=== PATIENT | male | born 1960 | race Caucasian/White ===

== ENCOUNTER → 2017-10-20 | Outpatient (CLI) | payer OTHER ==
[2017-10-20 18:33] LABS: ALBUMIN 3.9 GM/DL (3.2-5.2); ALBUMIN/GLOBULIN RATIO 1.18 (1.00-1.93); ALKALINE PHOSPHATASE 95 U/L (45-117); ALT/SGPT 27 U/L (12-78); ANION GAP 6 MEQ/L (8-16); AST/SGOT 16 U/L (7-37); BILIRUBIN,TOTAL 0.8 MG/DL (0.2-1.0); BLOOD UREA NITROGEN 11 MG/DL (7-18); CALCIUM LEVEL 8.9 MG/DL (8.5-10.1); CARBON DIOXIDE LEVEL 30 MEQ/L (21-32); CHLORIDE LEVEL 103 MEQ/L (98-107); CHOLESTEROL LEVEL 165 MG/DL (<200); CREATININE FOR GFR 0.86 MG/DL (0.70-1.30); GLOMERULAR FILTRATION RATE > 60.0 (>56); GLUCOSE, FASTING 97 MG/DL (70-100); HDL CHOLESTEROL 73 MG/DL (>40); LDL CHOLESTEROL 76.4 MG/DL (<100); NON-HDL-C 92 MG/DL; POTASSIUM SERUM 4.2 MEQ/L (3.5-5.1); SODIUM LEVEL 139 MEQ/L (136-145); TOTAL PROTEIN 7.2 GM/DL (6.4-8.2); TRIGLYCERIDES LEVEL 78 MG/DL (<150)
== END ==
LOC: M SMT 10:52
DX: Z00.00 Encounter for general adult medical examination without abnormal findings (principal)
CPT/HCPCS: 80053

== ENCOUNTER → 2018-11-02 | Outpatient (CLI) | payer OTHER ==
[2018-11-02 14:09] LABS: BASO % 0.2 % (0.0-1.0); EOS # 0.1 10^3/uL (0.0-0.50); EOS % 2.2 % (0.0-3.0); HEMATOCRIT 46.5 % (42.0-52.0); HEMOGLOBIN 15.8 g/dl (13.5-17.5); LYMPH % 32.6 % (24.0-44.0); MEAN CORPUSCULAR HEMOGLOBIN 28.6 pg (27.0-33.0); MEAN CORPUSCULAR VOLUME 84.2 fl (80.0-96.0); MONO # 0.5 10^3/uL (0.0-0.8); MONO % 8.2 % (0.0-5.0); NEUTROPHILS # 3.4 10^3/uL (1.8-7.7); NEUTROPHILS % 56.6 % (36.0-66.0); PLATELET COUNT, AUTOMATED 216 10^3/uL (150-450); RED BLOOD COUNT 5.52 10^6/uL (4.30-6.10)
[2018-11-02 14:25] LABS: ALT/SGPT 24 U/L (12-78); BILIRUBIN,TOTAL 0.7 MG/DL (0.2-1.0); BLOOD UREA NITROGEN 14 MG/DL (7-18); CALCIUM LEVEL 8.9 MG/DL (8.5-10.1); CARBON DIOXIDE LEVEL 29 MEQ/L (21-32); CHLORIDE LEVEL 104 MEQ/L (98-107); CREATININE FOR GFR 0.86 MG/DL (0.70-1.30); GLOMERULAR FILTRATION RATE > 60.0 (>56); GLUCOSE, FASTING 88 MG/DL (70-100); SODIUM LEVEL 139 MEQ/L (136-145); TOTAL PROTEIN 6.9 GM/DL (6.4-8.2)
== END ==
LOC: M SMT 10:51
PROVIDERS: ATTEND Physician Assistant Medical
DX: R42 Dizziness and giddiness (principal)

== ENCOUNTER → 2019-05-11 | Outpatient (CLI) | payer OTHER | LOC: M OUTALCOH 08:52 | PROVIDERS: ATTEND Psychiatry & Neurology Psychiatry | DX: F10.20 Alcohol dependence, uncomplicated (principal) ==

== ENCOUNTER 2019-06-27 13:58 | Outpatient (RCR) | payer OTHER | END 2019-06-30 | LOC: M OUTALCOH 13:58 | PROVIDERS: ATTEND Psychiatry & Neurology Psychiatry | DX: F10.20 Alcohol dependence, uncomplicated (principal) ==

== ENCOUNTER → 2019-07-31 | Outpatient (RCR) | payer OTHER | LOC: M OUTALCOH 07-04 15:00 | PROVIDERS: ATTEND Psychiatry & Neurology Psychiatry | DX: F10.20 Alcohol dependence, uncomplicated (principal) ==

== ENCOUNTER 2019-08-28 15:40 | Outpatient (RCR) | payer OTHER | END 2019-08-31 | LOC: M OUTALCOH 15:40 | PROVIDERS: ATTEND Psychiatry & Neurology Addiction Medicine | DX: F10.20 Alcohol dependence, uncomplicated (principal); F17.200 Nicotine dependence, unspecified, uncomplicated ==

== ENCOUNTER 2019-09-27 08:00 | Outpatient (RCR) | payer OTHER | END 2019-09-29 | LOC: M OUTALCOH 08:00 | PROVIDERS: ATTEND Psychiatry & Neurology Addiction Medicine | DX: F10.20 Alcohol dependence, uncomplicated (principal); F17.200 Nicotine dependence, unspecified, uncomplicated ==

== ENCOUNTER 2019-10-11 07:49 | Outpatient (RCR) | payer OTHER | END 2019-10-30 | LOC: M OUTALCOH 07:49 | PROVIDERS: ATTEND Psychiatry & Neurology Addiction Medicine | DX: F10.20 Alcohol dependence, uncomplicated (principal); F17.200 Nicotine dependence, unspecified, uncomplicated ==

== ENCOUNTER → 2019-12-27 | Outpatient (CLI) | payer OTHER ==
[2019-12-27 14:03] LABS: BASO % 0.2 % (0.0-1.0); EOS # 0.1 10^3/uL (0.0-0.5); EOS % 1.8 % (0.0-3.0); HEMATOCRIT 43.8 % (42.0-52.0); HEMOGLOBIN 14.6 g/dl (13.5-17.5); LYMPH # 1.4 10^3/uL (1.5-5.0); LYMPH % 28.2 % (24.0-44.0); MEAN CORPUSCULAR HGB CONC 33.3 g/dl (32.0-36.5); MEAN CORPUSCULAR VOLUME 87.1 fl (80.0-96.0); MONO # 0.4 10^3/uL (0.0-0.8); MONO % 7.1 % (0.0-5.0); NEUTROPHILS # 3.2 10^3/uL (1.5-8.5); NEUTROPHILS % 62.5 % (36.0-66.0); PLATELET COUNT, AUTOMATED 221 10^3/uL (150-450); RED BLOOD COUNT 5.03 10^6/uL (4.30-6.10)
[2019-12-27 14:10] LABS: ALBUMIN 3.5 GM/DL (3.2-5.2); ALT/SGPT 25 U/L (12-78); BILIRUBIN,TOTAL 0.7 MG/DL (0.2-1.0); BLOOD UREA NITROGEN 10 MG/DL (7-18); CALCIUM LEVEL 8.5 MG/DL (8.5-10.1); CARBON DIOXIDE LEVEL 31 MEQ/L (21-32); CHLORIDE LEVEL 107 MEQ/L (98-107); CHOLESTEROL LEVEL 175 MG/DL (<200); CHOLESTEROL RISK RATIO 3.017 (<5); CREATININE FOR GFR 0.77 MG/DL (0.70-1.30); GLOMERULAR FILTRATION RATE > 60.0 (>56); GLUCOSE, FASTING 96 MG/DL (70-100); HDL CHOLESTEROL 58 MG/DL (>40); LDL CHOLESTEROL 96 MG/DL (<100); NON-HDL-C 117 MG/DL; POTASSIUM SERUM 4.5 MEQ/L (3.5-5.1); SODIUM LEVEL 141 MEQ/L (136-145); TOTAL PROTEIN 6.7 GM/DL (6.4-8.2); TRIGLYCERIDES LEVEL 104 MG/DL (<150)
[2019-12-28 17:07] LABS: Lyme Disease IgG/IgM Antibodie <0.91 ISR (0.00-0.90); Lyme Disease IgM Ab Quantitati <0.80 index (0.00-0.79)
== END ==
LOC: M PLALAB 10:18
PROVIDERS: ATTEND Physician Assistant
DX: R53.83 Other fatigue (principal)

== ENCOUNTER 2020-03-12 08:52 | Day surgery (SDC) | payer OTHER ==
[2020-03-12] MEDS ORDERED: propofoL 200 MG/20 ML VIAL As Ordered ONE (10:06)
--- NOTE | 2020-04-09 11:28 | ROOR ---
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 Procedure: Pre-Anesthesia Assessment: - The heart rate, respiratory rate, oxygen saturations, blood pressure, adequacy of pulmonary ventilation, and response to care were monitored throughout the procedure. The Colonoscope was introduced through the anus and advanced to the cecum, identified by appendiceal orifice and ileocecal valve. The colonoscopy was performed without difficulty. The patient tolerated the procedure well. The quality of the bowel preparation was excellent. Findings: The perianal and digital rectal examinations were normal. Non-bleeding internal hemorrhoids were found during retroflexion. The hemorrhoids were small and Grade I (internal hemorrhoids that do not prolapse). Two sessile polyps were found in the ascending colon. The polyps were small in size. These polyps were removed with a cold snare. Resection and retrieval were complete. To prevent bleeding after the polypectomy, one hemostatic clip was successfully placed (MR conditional). There was no bleeding at the end of the procedure. The exam was otherwise without abnormality on direct and retroflexion views. Impression: - Non-bleeding internal hemorrhoids. - Two small polyps in the ascending colon, removed with a cold snare. Resected and retrieved. Clip (MR conditional) was placed. - The examination was otherwise normal on direct and retroflexion views. - The exam was otherwise normal to the cecum. Recommendation: - Patient has a contact number available for emergencies. The signs and symptoms of potential delayed complications were discussed with the patient. Return to normal activities tomorrow. Written discharge instructions were provided to the patient. - Discharge patient to home. - Continue present medications. - Await pathology results. - Telephone GI clinic for pathology results in 1 week. - Repeat colonoscopy in 5 years for surveillance. - Return to referring physician. - The findings and recommendations were discussed with the patient. Austyn Ortiz MD Austyn Ortiz MD 03/12/2020 10:27:36 AM Number of Addenda: 0 Note Initiated On: 03/12/2020 9:41 AM Estimated Blood Loss: Estimated blood loss: none.
== END 2020-03-12 11:08 | disposition home or self-care (01) ==
LOC: M SDC 08:52
PROVIDERS: ATTEND Internal Medicine Gastroenterology
DX: Z12.11 Encounter for screening for malignant neoplasm of colon (principal); Z86.010 Personal history of colon polyps; K64.0 First degree hemorrhoids; D12.2 Benign neoplasm of ascending colon; F17.220 Nicotine dependence, chewing tobacco, uncomplicated; Z79.899 Other long term (current) drug therapy

== ENCOUNTER → 2020-06-06 | Outpatient (CLI) | payer OTHER ==
[2020-06-06 13:46] LABS: BASO % 0.4 % (0.0-1.0); EOS # 0.1 10^3/uL (0.0-0.5); EOS % 1.8 % (0.0-3.0); HEMATOCRIT 45.2 % (42.0-52.0); HEMOGLOBIN 14.7 g/dl (13.5-17.5); LYMPH # 1.3 10^3/uL (1.5-5.0); LYMPH % 25.7 % (24.0-44.0); MEAN CORPUSCULAR HEMOGLOBIN 28.3 pg (27.0-33.0); MEAN CORPUSCULAR HGB CONC 32.5 g/dl (32.0-36.5); MEAN CORPUSCULAR VOLUME 86.9 fl (80.0-96.0); MONO # 0.4 10^3/uL (0.0-0.8); MONO % 7.7 % (0.0-5.0); NEUTROPHILS # 3.2 10^3/uL (1.5-8.5); PLATELET COUNT, AUTOMATED 243 10^3/uL (150-450); WHITE BLOOD COUNT 5.1 10^3/uL (4.0-10.0)
[2020-06-06 14:18] LABS: ERYTHROCYTE SEDIMENTATION RATE 7 mm/hr (0-20)
[2020-06-06 14:19] LABS: ALBUMIN 4.2 GM/DL (3.2-5.2); ALT/SGPT 24 U/L (12-78); BILIRUBIN,TOTAL 0.7 MG/DL (0.2-1.0); BLOOD UREA NITROGEN 10 MG/DL (7-18); CALCIUM LEVEL 9.5 MG/DL (8.5-10.1); CARBON DIOXIDE LEVEL 31 MEQ/L (21-32); CHLORIDE LEVEL 105 MEQ/L (98-107); CREATININE FOR GFR 0.89 MG/DL (0.70-1.30); FREE T4 0.94 NG/DL (0.76-1.46); GLOMERULAR FILTRATION RATE > 60.0 (>56); GLUCOSE, FASTING 82 MG/DL (70-100); POTASSIUM SERUM 4.7 MEQ/L (3.5-5.1); RHEUMATOID FACTOR QUANT < 10.0 IU/ML (<15.0); SODIUM LEVEL 140 MEQ/L (136-145); TOTAL PROTEIN 7.2 GM/DL (6.4-8.2)
[2020-06-06 14:21] LABS: VITAMIN B12 LEVEL 255 PG/ML
[2020-06-06 15:07] LABS: HEMOGLOBIN A1c 5.1 %
== END ==
LOC: M PLALAB 10:12
PROVIDERS: ATTEND Psychiatry & Neurology Neurology
DX: F03.90 Unspecified dementia, unspecified severity, without behavioral disturbance, psychotic disturbance, mood disturbance, and anxiety (principal); E07.9 Disorder of thyroid, unspecified; E11.9 Type 2 diabetes mellitus without complications

== ENCOUNTER → 2020-09-09 | Outpatient (CLI) | payer OTHER ==
[2020-09-09 15:26] LABS: FOLATE 6.9 NG/ML
== END ==
LOC: M PLALAB 10:27
PROVIDERS: ATTEND Psychiatry & Neurology Neurology
DX: E53.8 Deficiency of other specified B group vitamins (principal)

== ENCOUNTER → 2021-01-29 | Outpatient (CLI) | payer OTHER ==
[2021-01-29 15:35] LABS: BASO % 0.3 % (0.0-1.0); EOS % 4.4 % (0.0-3.0); HEMATOCRIT 40.8 % (42.0-52.0); HEMOGLOBIN 13.7 g/dl (13.5-17.5); LYMPH # 1.4 10^3/uL (1.5-5.0); LYMPH % 23.6 % (24.0-44.0); MEAN CORPUSCULAR HEMOGLOBIN 28.4 pg (27.0-33.0); MEAN CORPUSCULAR HGB CONC 33.6 g/dl (32.0-36.5); MEAN CORPUSCULAR VOLUME 84.6 fl (80.0-96.0); MONO # 0.5 10^3/uL (0.0-0.8); MONO % 7.6 % (2.0-8.0); NEUTROPHILS # 3.8 10^3/uL (1.5-8.5); NEUTROPHILS % 63.9 % (36.0-66.0); PLATELET COUNT, AUTOMATED 208 10^3/uL (150-450); RED BLOOD COUNT 4.82 10^6/uL (4.30-6.10); WHITE BLOOD COUNT 5.9 10^3/uL (4.0-10.0)
[2021-01-29 15:36] LABS: EOS # 0.3 10^3/uL (0.0-0.5)
[2021-01-29 16:00] LABS: ALT/SGPT 30 U/L (12-78); BILIRUBIN,TOTAL 0.7 MG/DL (0.2-1.0); BLOOD UREA NITROGEN 10 MG/DL (7-18); CARBON DIOXIDE LEVEL 32 MEQ/L (21-32); CHLORIDE LEVEL 107 MEQ/L (98-107); CHOLESTEROL LEVEL 169 MG/DL (<200); CHOLESTEROL RISK RATIO 2.682 (<5); CREATININE FOR GFR 0.76 MG/DL (0.70-1.30); GLOMERULAR FILTRATION RATE > 60.0 (>49); GLUCOSE, FASTING 77 MG/DL (70-100); HDL CHOLESTEROL 63 MG/DL (>40); NON-HDL-C 106 MG/DL; POTASSIUM SERUM 4.1 MEQ/L (3.5-5.1); SODIUM LEVEL 144 MEQ/L (136-145); TRIGLYCERIDES LEVEL 152 MG/DL (<150)
[2021-01-29 16:01] LABS: ALBUMIN 3.6 GM/DL (3.2-5.2); LDL CHOLESTEROL 76 MG/DL (<100); TOTAL PROTEIN 6.4 GM/DL (6.4-8.2)
[2021-01-29 16:04] LABS: FOLATE 6.4 NG/ML; VITAMIN B12 LEVEL 1132 PG/ML
== END ==
LOC: M PLALAB 13:28
PROVIDERS: ATTEND Nurse Practitioner Family
DX: Z00.00 Encounter for general adult medical examination without abnormal findings (principal); D51.9 Vitamin B12 deficiency anemia, unspecified

== ENCOUNTER → 2022-02-03 | Outpatient (CLI) | payer OTHER ==
[2022-02-03 14:05] LABS: BASO % 0.4 % (0.0-1.0); EOS # 0.4 10^3/uL (0.0-0.5); HEMATOCRIT 46.7 % (42.0-52.0); HEMOGLOBIN 15.6 g/dl (13.5-17.5); LYMPH # 1.5 10^3/uL (1.5-5.0); LYMPH % 29.6 % (24.0-44.0); MEAN CORPUSCULAR HEMOGLOBIN 29.3 pg (27.0-33.0); MEAN CORPUSCULAR HGB CONC 33.4 g/dl (32.0-36.5); MEAN CORPUSCULAR VOLUME 87.8 fl (80.0-96.0); MONO # 0.4 10^3/uL (0.0-0.8); MONO % 7.4 % (2.0-8.0); NEUTROPHILS # 2.8 10^3/uL (1.5-8.5); NEUTROPHILS % 55.4 % (36.0-66.0); PLATELET COUNT, AUTOMATED 221 10^3/uL (150-450); RED BLOOD COUNT 5.32 10^6/uL (4.30-6.10)
[2022-02-03 15:40] LABS: ALBUMIN 3.6 GM/DL (3.2-5.2); ALT/SGPT 20 U/L (12-78); BILIRUBIN,TOTAL 0.8 MG/DL (0.2-1.0); BLOOD UREA NITROGEN 10 MG/DL (7-18); CARBON DIOXIDE LEVEL 31 MEQ/L (21-32); CHLORIDE LEVEL 106 MEQ/L (98-107); CHOLESTEROL LEVEL 172 MG/DL (<200); CHOLESTEROL RISK RATIO 2.492 (<5); CREATININE FOR GFR 0.84 MG/DL (0.70-1.30); GLOMERULAR FILTRATION RATE > 60.0 (>49); GLUCOSE, FASTING 86 MG/DL (70-100); HDL CHOLESTEROL 69 MG/DL (>40); LDL CHOLESTEROL 87 MG/DL (<100); NON-HDL-C 103 MG/DL; SODIUM LEVEL 141 MEQ/L (136-145); TOTAL PROTEIN 6.7 GM/DL (6.4-8.2); TRIGLYCERIDES LEVEL 80 MG/DL (<150)
[2022-02-03 16:12] LABS: FOLATE 6.2 NG/ML; VITAMIN B12 LEVEL 1227 PG/ML
== END ==
LOC: M PLALAB 09:46
PROVIDERS: ATTEND Nurse Practitioner Family
DX: Z00.00 Encounter for general adult medical examination without abnormal findings (principal); D51.9 Vitamin B12 deficiency anemia, unspecified

== ENCOUNTER → 2022-02-24 | Outpatient (CLI) | payer OTHER | LOC: M PLALAB 11:04 | PROVIDERS: ATTEND Family Medicine | DX: D51.9 Vitamin B12 deficiency anemia, unspecified (principal) ==

== ENCOUNTER → 2022-06-11 | Outpatient (CLI) | payer OTHER | LOC: M PLALAB 09:59 | PROVIDERS: ATTEND Nurse Practitioner Family | DX: D51.9 Vitamin B12 deficiency anemia, unspecified (principal) ==

== ENCOUNTER → 2023-05-31 | Outpatient (CLI) | payer MEDICARE, OTHER ==
[2023-05-31 13:31] LABS: BASO % 0.2 % (0.0-1.0); EOS # 0.1 10^3/uL (0.0-0.5); EOS % 1.1 % (0.0-3.0); HEMATOCRIT 44.9 % (42.0-52.0); HEMOGLOBIN 15.2 g/dl (13.5-17.5); LYMPH # 1.3 10^3/uL (1.5-5.0); MEAN CORPUSCULAR HEMOGLOBIN 28.5 pg (27.0-33.0); MEAN CORPUSCULAR HGB CONC 33.9 g/dl (32.0-36.5); MEAN CORPUSCULAR VOLUME 84.2 fl (80.0-96.0); MONO # 0.4 10^3/uL (0.0-0.8); MONO % 7.2 % (2.0-8.0); NEUTROPHILS # 3.9 10^3/uL (1.5-8.5); NEUTROPHILS % 69.1 % (36.0-66.0); PLATELET COUNT, AUTOMATED 210 10^3/uL (150-450); RED BLOOD COUNT 5.33 10^6/uL (4.30-6.10); WHITE BLOOD COUNT 5.7 10^3/uL (4.0-10.0)
[2023-05-31 14:03] LABS: ALBUMIN 3.8 G/DL (3.2-5.2); ALKALINE PHOSPHATASE 64 U/L (46-116); ALT/SGPT 16 U/L (7.0-40); AST/SGOT 12 U/L (<34); BILIRUBIN,TOTAL 1.5 MG/DL (0.3-1.2); BLOOD UREA NITROGEN 13 MG/DL (9-23); CALCIUM LEVEL 9.1 MG/DL (8.3-10.6); CARBON DIOXIDE LEVEL 29 MMOL/L (20-31); CHLORIDE LEVEL 101 MMOL/L (98-107); CHOLESTEROL LEVEL 168 MG/DL (<200); CHOLESTEROL RISK RATIO 2.83 (<5); CREATININE FOR GFR 0.95 MG/DL (0.70-1.30); GLOMERULAR FILTRATION RATE > 60.0 (>49); GLUCOSE, FASTING 92 MG/DL (74-106); HDL CHOLESTEROL 59.3 MG/DL (>40); LDL CHOLESTEROL 93.5 MG/DL (<100); NON-HDL-C 108.7 MG/DL; POTASSIUM SERUM 3.8 MMOL/L (3.5-5.1); SODIUM LEVEL 139 MMOL/L (136-145); TOTAL PROTEIN 6.5 G/DL (5.7-8.2); TRIGLYCERIDES LEVEL 76 MG/DL (<150)
== END ==
LOC: M PLALAB 10:02
PROVIDERS: ATTEND Nurse Practitioner Family
DX: Z00.00 Encounter for general adult medical examination without abnormal findings (principal)

== ENCOUNTER 2023-08-14 16:38 | Inpatient (IN) | payer MEDICARE, OTHER ==
[~2023-08-14] VITALS: Ht 175.3 cm; Wt 67.2 kg
[2023-08-14] MEDS ORDERED: DONE5TAB82 PO (16:51)
[2023-08-14] MEDS ORDERED: RISP0.5T82 PO (16:51)
[2023-08-14] MEDS ORDERED: PARO40TA2 PO (16:51)
[2023-08-14] MEDS ORDERED: MEMA10TA PO (16:51)
[2023-08-14 18:08] LABS: BASO % 0.2 % (0.0-1.0); EOS % 0.5 % (0.0-3.0); LYMPH # 1.6 10^3/uL (1.5-5.0); LYMPH % 24.3 % (24.0-44.0); MEAN CORPUSCULAR HEMOGLOBIN 28.6 pg (27.0-33.0); MEAN CORPUSCULAR HGB CONC 34.1 g/dl (32.0-36.5); MEAN CORPUSCULAR VOLUME 83.8 fl (80.0-96.0); MONO # 0.6 10^3/uL (0.0-0.8); MONO % 8.8 % (2.0-8.0); NEUTROPHILS # 4.2 10^3/uL (1.5-8.5); PLATELET COUNT, AUTOMATED 223 10^3/uL (150-450); RED BLOOD COUNT 4.89 10^6/uL (4.30-6.10); WHITE BLOOD COUNT 6.4 10^3/uL (4.0-10.0)
[2023-08-14 18:33] LABS: ETHYL ALCOHOL (ETHANOL) < 0.003 % (0.000-0.010)
[2023-08-14 18:34] LABS: ALBUMIN 3.7 G/DL (3.2-5.2); ALKALINE PHOSPHATASE 57 U/L (46-116); ALT/SGPT 22 U/L (7.0-40); AST/SGOT 12 U/L (<34); BILIRUBIN,DIRECT 0.4 MG/DL (<0.4); BLOOD UREA NITROGEN 16 MG/DL (9-23); CALCIUM LEVEL 9.2 MG/DL (8.3-10.6); CARBON DIOXIDE LEVEL 30 MMOL/L (20-31); CHLORIDE LEVEL 104 MMOL/L (98-107); CK-MB VALUE MASS < 1.0 NG/ML (<3.6); CPK CREATINE PHOSPHOKINASE 109 U/L (46-171); CREATININE FOR GFR 0.83 MG/DL (0.70-1.30); GLOMERULAR FILTRATION RATE > 60.0 (>49); GLUCOSE, FASTING 97 MG/DL (74-106); MB/CK RELATIVE INDEX 0.91 (< OR =4); POTASSIUM SERUM 3.8 MMOL/L (3.5-5.1); SODIUM LEVEL 140 MMOL/L (136-145); TOTAL PROTEIN 6.2 G/DL (5.7-8.2)
[2023-08-14 18:36] LABS: THYROID STIMULATING HORMONE 2.022 uIU/ML (0.55-4.78)
[2023-08-14] MEDS ORDERED: B-12100010 PO (18:39)
[2023-08-14] MEDS ORDERED: HOME MED LIST COMPLETE! XX SCH (18:40)
[2023-08-14 18:42] LABS: RSV AMPLIFICATION NEGATIVE (NEGATIVE)
[2023-08-14] MEDS: LORazepam 0.5 MG TAB PO ONE (18:45)
[2023-08-14 22:12] LABS: AMPHETAMINES LEVEL URINE NEGATIVE (NEGATIVE); BARBITURATES URINE NEGATIVE (NEGATIVE); BENZODIAZEPINES URINE NEGATIVE (NEGATIVE); CANNABINOIDS URINE NEGATIVE (NEGATIVE); COCAINE METABOLITE URINE NEGATIVE (NEGATIVE); METHADONE URINE NEGATIVE (NEGATIVE); OPIATES URINE NEGATIVE (NEGATIVE); PHENCYCLIDINE URINE NEGATIVE (NEGATIVE)
[2023-08-14] MEDS: NS 1,000 ML IV SCH (22:16)
[2023-08-14] MEDS: DOCUSATE SODIUM 100MG CAPSULE PO SCH (22:16)
[2023-08-15] MEDS: HEPARIN SOD (PORCINE) 5000UNITS/ML 1ML VIAL/SYRINGE SC SCH (05:44)
[2023-08-15] MEDS: LORazepam 2 MG/ML 1ML VIAL IV STA (05:45)
[2023-08-15 08:18] LABS: HEMATOCRIT 40.9 % (42.0-52.0); HEMOGLOBIN 13.8 g/dl (13.5-17.5); MEAN CORPUSCULAR HEMOGLOBIN 28.7 pg (27.0-33.0); MEAN CORPUSCULAR HGB CONC 33.7 g/dl (32.0-36.5); PLATELET COUNT, AUTOMATED 205 10^3/uL (150-450); RED BLOOD COUNT 4.81 10^6/uL (4.30-6.10); WHITE BLOOD COUNT 5.8 10^3/uL (4.0-10.0)
[2023-08-15 08:59] LABS: PROCALCITONIN <0.04 ng/ml
[2023-08-15 09:01] LABS: ALBUMIN 3.1 G/DL (3.2-5.2); ALKALINE PHOSPHATASE 52 U/L (46-116); ALT/SGPT 17 U/L (7.0-40); AST/SGOT 10 U/L (<34); BILIRUBIN,TOTAL 1.1 MG/DL (0.3-1.2); BLOOD UREA NITROGEN 10 MG/DL (9-23); CALCIUM LEVEL 8.4 MG/DL (8.3-10.6); CARBON DIOXIDE LEVEL 27 MMOL/L (20-31); CHLORIDE LEVEL 104 MMOL/L (98-107); GLOMERULAR FILTRATION RATE > 60.0 (>49); GLUCOSE, FASTING 89 MG/DL (74-106); POTASSIUM SERUM 3.7 MMOL/L (3.5-5.1); SODIUM LEVEL 139 MMOL/L (136-145); TOTAL PROTEIN 5.5 G/DL (5.7-8.2)
[2023-08-15] MEDS: LORazepam 2 MG/ML 1ML VIAL IV ONE (10:06)
[2023-08-15] MEDS: LORazepam 0.5 MG TAB PO SCH (16:16)
[2023-08-15] MEDS: HALOPERIDOL 5MG/ML 1ML VIAL IV PRN (16:26)
[2023-08-15 17:10] VITALS: BP 108/64; TEMP 97.9; O2SAT 92
[2023-08-15] MEDS: DONEPEZIL 5 MG TAB PO SCH (20:05)
[2023-08-15] MEDS: MEMANTINE 5MG TABLET (NAMENDA) PO SCH (20:05)
[2023-08-15] MEDS: CYANOCOBALAMIN 500 MCG TAB PO SCH (20:05)
[2023-08-16 05:45] VITALS: BP 128/92; TEMP 97.9; O2SAT 98
[2023-08-16] MEDS: risperiDONE 0.5 MG TAB PO SCH (11:12)
[2023-08-16] MEDS: PARoxetine 20MG TABLET PO SCH (11:12)
[2023-08-16] MEDS: RIVAROXABAN 10MG TAB (XARELTO) PO SCH (18:29)
[2023-08-16] MEDS: ACETAMINOPHEN TAB 650MG DOSE (2X325MG) PO PRN (19:48)
[2023-08-16 20:02] VITALS: BP 102/69; TEMP 98.1; O2SAT 94
[2023-08-17 05:10] VITALS: BP 105/69; TEMP 97.9; O2SAT 96
[2023-08-17 19:32] VITALS: BP 94/69; TEMP 97.5; O2SAT 96
[2023-08-18 05:53] VITALS: BP 122/94; TEMP 97.9; O2SAT 96
[2023-08-18 14:00] VITALS: BP 121/83; TEMP 97.9; O2SAT 96
[2023-08-18 19:40] VITALS: BP 108/67; TEMP 97.7; O2SAT 95
[2023-08-19 05:24] VITALS: BP 139/93; TEMP 97.9; O2SAT 94
[2023-08-19] MEDS: PARoxetine 10MG/5ML SUSP ORAL SYRINGE *DRAW UP EXACT DOSE PO SCH (10:55)
[2023-08-19] MEDS: SENOKOT S TAB PO SCH ×2 (10:56→19:26)
[2023-08-19] MEDS: MOM 30ML SUSPENSION UDC PO SCH (11:40)
[2023-08-19 14:00] VITALS: BP 108/70; TEMP 97.5; O2SAT 95
[2023-08-19 19:38] VITALS: BP 110/72; TEMP 97.7; O2SAT 97
[2023-08-20 05:28] VITALS: BP 120/78; TEMP 97.4; O2SAT 97
[2023-08-20] MEDS: LACTULOSE 20GM/30ML SYRUP UDC PO SCH (15:14)
[2023-08-21 06:15] VITALS: BP 106/68; TEMP 97.3; O2SAT 97
[2023-08-21] MEDS: BISACODYL 10MG SUPP PR PRN (12:22)
[2023-08-21 20:00] VITALS: BP 116/76; TEMP 97.7
[2023-08-22 05:09] VITALS: BP 117/81; TEMP 97.9; O2SAT 96
[2023-08-22] MEDS: LORazepam 0.5 MG TAB PO PRN (09:54)
[2023-08-22 19:39] VITALS: BP 97/67; TEMP 98.1
[2023-08-23 06:00] VITALS: BP 110/64; TEMP 97.5; O2SAT 97
[2023-08-24 04:50] VITALS: BP 116/64; TEMP 97.9; O2SAT 98
[2023-08-25 05:20] VITALS: BP 134/91; TEMP 97.9; O2SAT 97
[2023-08-26 06:00] VITALS: BP 101/78; TEMP 97.7; O2SAT 94
[2023-08-27 06:40] VITALS: BP 106/58; TEMP 97.7; O2SAT 96
[2023-08-28 06:00] VITALS: BP 119/81; TEMP 98.2; O2SAT 96
[2023-08-29 05:20] VITALS: BP 114/75; TEMP 97.9; O2SAT 96
[2023-08-30 05:20] VITALS: TEMP 97.7
[2023-08-30 06:14] VITALS: BP 96/68; O2SAT 96
[2023-08-31 04:53] VITALS: BP 108/72; TEMP 97.5; O2SAT 97
[2023-09-01 07:05] VITALS: BP 109/72; TEMP 97.9; O2SAT 94
[2023-09-01] MEDS: RAMELTEON 8 MG TAB (ROZEREM) PO PRN (21:07)
[2023-09-02 05:27] VITALS: BP 98/68; TEMP 97.7; O2SAT 97
[2023-09-02 06:42] VITALS: BP 121/56
[2023-09-02 17:58] VITALS: BP 113/87; TEMP 97.5; O2SAT 99
[2023-09-03 05:35] VITALS: BP 130/98; TEMP 97.5; O2SAT 96
[2023-09-03] MEDS: risperiDONE 0.5 MG TAB PO SCH (08:25)
[2023-09-03] MEDS: risperiDONE 1 MG TAB PO SCH (21:00)
[2023-09-03] MEDS: RAMELTEON 8 MG TAB (ROZEREM) PO SCH (21:00)
[2023-09-03] MEDS: HALOPERIDOL 5MG/ML 1ML VIAL IM PRN (21:35)
[2023-09-04] MEDS: MOM 30ML SUSPENSION UDC PO PRN (08:30)
[2023-09-05 06:05] VITALS: TEMP 98.4
[2023-09-05] MEDS: LORazepam 2 MG/ML 1ML VIAL IM PRN (19:41)
[2023-09-07 06:00] VITALS: BP 112/85; TEMP 97.1; O2SAT 97
[2023-09-08 06:00] VITALS: BP 106/76; TEMP 97.7; O2SAT 97
[2023-09-09 05:01] VITALS: BP 102/66; TEMP 97.9; O2SAT 96
[2023-09-10 05:16] VITALS: BP 115/79; TEMP 98.1; O2SAT 97
[2023-09-11 06:14] VITALS: BP 118/78; TEMP 97.9; O2SAT 97
[2023-09-13 04:00] VITALS: BP 106/84; TEMP 98.1; O2SAT 98
[2023-09-14 06:00] VITALS: BP 118/82; TEMP 98.6; O2SAT 95
[2023-09-15 05:10] VITALS: BP 112/70; TEMP 98.6; O2SAT 98
[2023-09-16 05:08] VITALS: BP 104/58; TEMP 98.2; O2SAT 99
[2023-09-17 06:00] VITALS: BP 118/72; TEMP 98.9; O2SAT 98
[2023-09-17] MEDS: risperiDONE 0.5 MG TAB PO ONE (13:45)
[2023-09-18 05:18] VITALS: BP 138/95; TEMP 97.9; O2SAT 94
[2023-09-18] MEDS: risperiDONE 1 MG TAB PO SCH (09:39)
[2023-09-18] MEDS: PARoxetine 10MG/5ML SUSP ORAL SYRINGE *DRAW UP EXACT DOSE PO SCH (09:39)
[2023-09-19 06:27] VITALS: BP 116/71; TEMP 98.4; O2SAT 96
[2023-09-20 05:20] VITALS: BP 96/66; TEMP 97.9; O2SAT 99
[2023-09-21 04:49] VITALS: BP 141/87; TEMP 99.5; O2SAT 94
[2023-09-22 05:07] VITALS: BP 114/73; TEMP 99; O2SAT 97
[2023-09-23 05:02] VITALS: BP 98/53; TEMP 98.2; O2SAT 98
[2023-09-24 04:50] VITALS: BP 118/82; TEMP 98.6; O2SAT 97
[2023-09-25 04:30] VITALS: BP 127/84; TEMP 98.2; O2SAT 98
[2023-09-25] MEDS: PARoxetine 10MG/5ML SUSP ORAL SYRINGE *DRAW UP EXACT DOSE PO SCH (08:32)
[2023-09-25] MEDS: LORazepam 0.5 MG TAB PO PRN (21:37)
[2023-09-26 04:17] VITALS: BP 106/60; TEMP 97.9; O2SAT 97
[2023-09-27] MEDS: OLANZapine INTRAMUSCULAR 10MG VIAL IM ONE (04:55)
[2023-09-27 05:28] VITALS: BP 111/78; TEMP 97.5; O2SAT 94
[2023-09-28] MEDS: PARoxetine 10MG/5ML SUSP ORAL SYRINGE *DRAW UP EXACT DOSE PO SCH (10:14)
[2023-09-29 06:53] VITALS: BP 144/91; TEMP 98.2; O2SAT 94
[2023-09-30 05:55] VITALS: BP 130/82; TEMP 98.1; O2SAT 95
[2023-10-01 05:03] VITALS: BP 112/82; TEMP 98.4; O2SAT 99
[2023-10-02 04:20] VITALS: BP 140/48; TEMP 98; O2SAT 98
[2023-10-03] MEDS: DIAPER RELIEF PASTE (DESITIN) 60GM TOP PRN (03:45)
[2023-10-03 04:00] VITALS: BP 131/85; TEMP 97.7; O2SAT 96
[2023-10-04 04:20] VITALS: BP 138/71; TEMP 98.8; O2SAT 93
[2023-10-04] MEDS: MIRALAX *UNIT DOSE* 17GM PACKET PO PRN (13:33)
[2023-10-05 04:42] VITALS: BP 114/75; TEMP 98.2; O2SAT 98
[2023-10-06 05:10] VITALS: BP 103/65; TEMP 98.8; O2SAT 93
[2023-10-06 20:09] VITALS: BP 106/76; TEMP 98.2; O2SAT 94
[2023-10-07 06:53] VITALS: BP 127/64; TEMP 98.1; O2SAT 95
[2023-10-08 06:04] VITALS: BP 133/87; TEMP 98.8; O2SAT 97
[2023-10-08] MEDS: MIRALAX *UNIT DOSE* 17GM PACKET PO SCH (17:53)
[2023-10-08] MEDS: METAMUCIL (PSYLLIUM) PACKET PO SCH (19:33)
[2023-10-09 03:29] VITALS: BP 111/73; TEMP 98.1; O2SAT 96
[2023-10-10 06:22] VITALS: BP 107/70; TEMP 98.3; O2SAT 99
[2023-10-11 06:30] VITALS: BP 100/64; TEMP 98.8; O2SAT 97
[2023-10-11] MEDS: SENOKOT S TAB PO PRN (09:43)
[2023-10-11 20:10] VITALS: BP 115/76; TEMP 98.2; O2SAT 96
[2023-10-12 10:00] VITALS: BP 127/66; TEMP 98.1; O2SAT 97
[2023-10-13 05:46] VITALS: BP 138/64; TEMP 96.4; O2SAT 97
[2023-10-14 06:00] VITALS: BP 127/78; TEMP 97.9; O2SAT 90
[2023-10-15 05:30] VITALS: BP 120/87; TEMP 98.6; O2SAT 97
[2023-10-15 20:00] VITALS: BP 107/73; TEMP 98.2
[2023-10-16 06:00] VITALS: BP 111/78; TEMP 98.2; O2SAT 93
[2023-10-17 06:00] VITALS: BP 117/77; TEMP 97.3; O2SAT 92
[2023-10-18 06:00] VITALS: BP 125/57; TEMP 98; O2SAT 91
[2023-10-19 06:00] VITALS: BP 127/97; TEMP 98; O2SAT 94
[2023-10-20 04:56] VITALS: BP 114/56; TEMP 98.6; O2SAT 93
[2023-10-21 05:09] VITALS: BP 115/58; TEMP 98.8; O2SAT 94
[2023-10-22 06:00] VITALS: BP 134/78; TEMP 98.6; O2SAT 100
[2023-10-23 06:00] VITALS: BP 137/62; TEMP 98.2; O2SAT 95
[2023-10-24 06:00] VITALS: BP 108/71; TEMP 98.8; O2SAT 97
[2023-10-25 05:45] VITALS: BP 106/60; TEMP 98.1; O2SAT 94
[2023-10-26 05:09] VITALS: BP 118/71; TEMP 98.4; O2SAT 94
[2023-10-27 06:00] VITALS: BP 109/76; TEMP 98.1; O2SAT 92
[2023-10-28 06:20] VITALS: BP 136/62; TEMP 97.9; O2SAT 99
[2023-10-29 06:32] VITALS: BP 134/68; TEMP 97.2; O2SAT 95
[2023-10-30 05:17] VITALS: BP 99/59; TEMP 98.6; O2SAT 97
[2023-10-31 04:30] VITALS: BP 108/62; TEMP 98.1; O2SAT 98
[2023-11-01 06:00] VITALS: BP 131/81; TEMP 98.1; O2SAT 96
[2023-11-02 04:20] VITALS: BP 116/50; TEMP 98.2; O2SAT 94
[2023-11-03 05:22] VITALS: BP 118/84; TEMP 98.6; O2SAT 96
[2023-11-04 05:06] VITALS: BP 108/72; TEMP 97.5; O2SAT 98
[2023-11-05 03:30] VITALS: BP 118/81; TEMP 98.2; O2SAT 95
[2023-11-06 05:30] VITALS: BP 120/74; TEMP 98.4; O2SAT 94
[2023-11-07 04:58] VITALS: BP 124/74; TEMP 98.3; O2SAT 97
[2023-11-08 04:13] VITALS: BP 100/64; TEMP 97.9; O2SAT 96
[2023-11-09 04:55] VITALS: BP 112/66; TEMP 98.6; O2SAT 90
[2023-11-10 06:00] VITALS: BP 141/87; TEMP 97.2; O2SAT 92
[2023-11-11 06:00] VITALS: BP 90/70; TEMP 97.8; O2SAT 93
[2023-11-11 07:52] VITALS: BP 92/51
[2023-11-12 05:47] VITALS: BP 125/72; TEMP 97.9; O2SAT 94
[2023-11-12 09:19] LABS: BLOOD UREA NITROGEN 7 MG/DL (9-23); CALCIUM LEVEL 8.7 MG/DL (8.3-10.6); CARBON DIOXIDE LEVEL 25 MMOL/L (20-31); CHLORIDE LEVEL 109 MMOL/L (98-107); CREATININE FOR GFR 0.67 MG/DL (0.70-1.30); GLOMERULAR FILTRATION RATE > 60.0 (>49); GLUCOSE, FASTING 116 MG/DL (74-106); POTASSIUM SERUM 4.2 MMOL/L (3.5-5.1); SODIUM LEVEL 143 MMOL/L (136-145)
[2023-11-13 05:55] VITALS: BP 100/59; TEMP 97.5; O2SAT 99
[2023-11-14 05:37] VITALS: BP 111/58; TEMP 97.9; O2SAT 97
[2023-11-15 04:40] VITALS: BP 110/59; TEMP 97.9; O2SAT 95
[2023-11-15] MEDS ORDERED: BISA10SU PR (09:36)
[2023-11-15] MEDS ORDERED: ATIV1TAB10 PO (09:36)
[2023-11-15] MEDS ORDERED: META1POW PO (09:36)
[2023-11-15] MEDS ORDERED: RISP1TAB42 PO (09:36)
[2023-11-15] MEDS ORDERED: RAME8TAB2 PO (09:36)
[2023-11-15] MEDS ORDERED: SENN-52 PO (09:36)
[2023-11-15] MEDS ORDERED: MIRA33506 PO (09:36)
== END 2023-11-15 11:50 | DRG 57 ==
LOC: M ED 16:38 → M ED INP 16:39 → ENRESERV 08-15 16:30 → M MSPAV 08-15 17:07 → OBSVTOIN 08-17 14:19 → M MSPAV 09-12 17:29
PROVIDERS: ADMIT Internal Medicine; ATTEND Internal Medicine
DX: G30.9 Alzheimer's disease, unspecified (principal); R44.3 Hallucinations, unspecified; F02.811 Dementia in other diseases classified elsewhere, unspecified severity, with agitation; F32.A Depression, unspecified; E53.8 Deficiency of other specified B group vitamins; K59.00 Constipation, unspecified; G47.00 Insomnia, unspecified; K57.90 Diverticulosis of intestine, part unspecified, without perforation or abscess without bleeding; Z79.899 Other long term (current) drug therapy; K64.8 Other hemorrhoids; Z91.148 Patient's other noncompliance with medication regimen for other reason

== ENCOUNTER 2023-11-19 19:19 | Observation (INO) | payer MEDICARE, OTHER ==
[~2023-11-19] VITALS: Ht 175.3 cm; Wt 67.2 kg
[~2023-11-19 19:19] MED LIST: ATIV1TAB10 PO; B-12100010 PO; BISA10SU PR; DONE5TAB82 PO; MEMA10TA PO; META1POW PO; MIRA33506 PO; PARO40TA2 PO; RAME8TAB2 PO; RISP0.5T82 PO; RISP1TAB42 PO; SENN-52 PO
[2023-11-19] MEDS: risperiDONE 1 MG TAB PO ONE (20:03)
[2023-11-19] MEDS: LORazepam 0.5 MG TAB PO STA (20:03)
[2023-11-19] MEDS: RAMELTEON 8 MG TAB (ROZEREM) PO STA (20:03)
[2023-11-19 20:07] LABS: HEMATOCRIT 37.6 % (42.0-52.0); HEMOGLOBIN 12.8 g/dl (13.5-17.5); MEAN CORPUSCULAR HEMOGLOBIN 28.8 pg (27.0-33.0); MEAN CORPUSCULAR VOLUME 84.7 fl (80.0-96.0); PLATELET COUNT, AUTOMATED 239 10^3/uL (150-450); RED BLOOD COUNT 4.44 10^6/uL (4.30-6.10); WHITE BLOOD COUNT 7.3 10^3/uL (4.0-10.0)
[2023-11-19 20:31] LABS: AMPHETAMINES LEVEL URINE NEGATIVE (NEGATIVE); BARBITURATES URINE NEGATIVE (NEGATIVE); BENZODIAZEPINES URINE NEGATIVE (NEGATIVE); COCAINE METABOLITE URINE NEGATIVE (NEGATIVE); METHADONE URINE NEGATIVE (NEGATIVE); OPIATES URINE NEGATIVE (NEGATIVE); PHENCYCLIDINE URINE NEGATIVE (NEGATIVE)
[2023-11-19 20:32] LABS: ETHYL ALCOHOL (ETHANOL) < 0.003 % (0.000-0.010)
[2023-11-19 20:33] LABS: APPEARANCE, URINE CLEAR (CLEAR); BACTERIA, URINE AUTO NEGATIVE (NEGATIVE); BILIRUBIN, URINE AUTO NEGATIVE (NEGATIVE); BLOOD, URINE BLOOD 1+ (NEGATIVE); COLOR, URINE YELLOW (YELLOW); GLUCOSE, URINE (UA) AUTO NEGATIVE (NEGATIVE); KETONE, URINE AUTO NEGATIVE (NEGATIVE); LEUKOCYTE ESTERASE, URINE AUTO NEGATIVE (NEGATIVE); NITRITE, URINE AUTO NEGATIVE (NEGATIVE); PROTEIN, URINE AUTO NEGATIVE (NEGATIVE); RBC, URINE AUTO 4 /HPF (0-3); SPECIFIC GRAVITY URINE AUTO 1.005 (1.002-1.035); SQUAMOUS EPITHELIAL CELL UR AU 0 /HPF (0-6); UROBILINOGEN, URINE AUTO 0.2 mg/dL (0.0-2.0); WBC, URINE AUTO 1 /HPF (0-3)
[2023-11-19 20:33] LABS: SALICYLATE LEVEL < 3.0 MG/DL (<30)
[2023-11-19 20:34] LABS: ALBUMIN 3.4 G/DL (3.2-5.2); ALKALINE PHOSPHATASE 71 U/L (46-116); ALT/SGPT 12 U/L (7.0-40); AST/SGOT 10 U/L (<34); BILIRUBIN,DIRECT 0.3 MG/DL (<0.4); BLOOD UREA NITROGEN 15 MG/DL (9-23); CALCIUM LEVEL 9.5 MG/DL (8.3-10.6); CARBON DIOXIDE LEVEL 26 MMOL/L (20-31); CHLORIDE LEVEL 107 MMOL/L (98-107); CREATININE FOR GFR 0.71 MG/DL (0.70-1.30); GLOMERULAR FILTRATION RATE > 60.0 (>49); GLUCOSE, FASTING 96 MG/DL (74-106); POTASSIUM SERUM 3.9 MMOL/L (3.5-5.1); SODIUM LEVEL 142 MMOL/L (136-145); TOTAL PROTEIN 6.1 G/DL (5.7-8.2)
[2023-11-19 20:35] LABS: THYROID STIMULATING HORMONE 1.971 uIU/ML (0.55-4.78)
[2023-11-19 20:37] LABS: CANNABINOIDS URINE POSITIVE (NEGATIVE)
[2023-11-19] MEDS ORDERED: REXU1TAB3 PO (21:08)
[2023-11-19] MEDS ORDERED: META0.52 PO (21:08)
[2023-11-19] MEDS ORDERED: POLY17PO18 PO (21:08)
[2023-11-19] MEDS ORDERED: ROZE8TAB16 PO (21:08)
[2023-11-19] MEDS ORDERED: SENN-186 PO (21:17)
[2023-11-19] MEDS ORDERED: GABA-282 PO (21:17)
[2023-11-19] MEDS ORDERED: RISP-106 PO (21:17)
[2023-11-19] MEDS ORDERED: TYLE650T38 PO (21:17)
[2023-11-19] MEDS ORDERED: BISA10SU27 PR (21:22)
[2023-11-19] MEDS ORDERED: LORA1TAB23 PO (21:22)
[2023-11-19] MEDS ORDERED: ACET325C5 PO (21:28)
[2023-11-19] MEDS ORDERED: MILKSUS3 PO (21:28)
[2023-11-19] MEDS ORDERED: [UNRECOGNIZED DRUG - CODE] TP (21:28)
[2023-11-19] MEDS ORDERED: HOME MED LIST COMPLETE! XX SCH (21:30)
[2023-11-20] MEDS: LORazepam 1 MG TAB PO PRN (12:14)
[2023-11-20] MEDS: GABAPENTIN 300 MG CAP PO SCH (20:38)
[2023-11-20] MEDS: SENOKOT S TAB PO SCH (20:38)
[2023-11-20] MEDS: risperiDONE 2 MG TAB PO SCH (20:38)
[2023-11-20] MEDS: RAMELTEON 8 MG TAB (ROZEREM) PO SCH (20:38)
[2023-11-21] MEDS: PARoxetine 20MG TABLET PO SCH (09:42)
[2023-11-21] MEDS ORDERED: ACETAMINOPHEN 650MG ER TAB (TYLENOL ARTHRITIS) PO PRN (17:45)
[2023-11-21] MEDS: tiZANidine 4 MG TAB PO SCH (23:03)
[2023-11-22] MEDS: CYANOCOBALAMIN 500 MCG TAB PO SCH (09:25)
[2023-11-22 14:52] VITALS: BP 99/61; TEMP 98.6; O2SAT 96
[2023-11-22] MEDS: RIVAROXABAN 10MG TAB (XARELTO) PO SCH (17:32)
[2023-11-22 20:46] VITALS: BP 99/62; TEMP 98.1; O2SAT 96
[2023-11-23 04:56] VITALS: BP 103/74; TEMP 98.1; O2SAT 97
[2023-11-23] MEDS ORDERED: LORA1TAB23 PO (10:38)
[2023-11-23] MEDS ORDERED: TIZA10TA PO (10:38)
[2023-11-23] MEDS ORDERED: ZYPR5TAB2 PO (10:38)
== END 2023-11-23 14:00 ==
LOC: M ED 19:19 → M ED INP 19:20 → UNDOADMOB 11-21 17:45 → INTOOBSV 11-21 17:45 → M MSPAV 11-22 14:57 → M ED INP 11-22 14:57 → M MSPAV 11-22 14:57 → UNDODISOB 11-23 14:00
PROVIDERS: ADMIT Internal Medicine Nephrology; ATTEND Internal Medicine Nephrology
DX: G30.9 Alzheimer's disease, unspecified (principal); F02.811 Dementia in other diseases classified elsewhere, unspecified severity, with agitation; F32.A Depression, unspecified; E53.8 Deficiency of other specified B group vitamins; K59.09 Other constipation; G47.00 Insomnia, unspecified; R82.998 Other abnormal findings in urine; M62.838 Other muscle spasm; M24.59 Contracture, other specified joint; Z79.899 Other long term (current) drug therapy
CPT/HCPCS: 71045; 80048; 80076; 80143; 80307; 81001; 82077; 84443; 85027; 87426; 99284; G0378

== ENCOUNTER → 2023-12-13 | Outpatient (REF) | payer MEDICARE, OTHER ==
[~2023-12-13] MED LIST changes: +ACET325C5 PO; +BISA10SU27 PR; +GABA-282 PO; +LORA1TAB23 PO; +META0.52 PO; +MILKSUS3 PO; +POLY17PO18 PO; +REXU1TAB3 PO; +RISP-106 PO; +ROZE8TAB16 PO; +SENN-186 PO; +TIZA10TA PO; +TYLE650T38 PO; +ZYPR5TAB2 PO; +[UNRECOGNIZED DRUG - CODE] TP
[2023-12-13 11:26] LABS: BASO % 0.1 % (0.0-1.0); EOS # 0.1 10^3/uL (0.0-0.5); EOS % 1.1 % (0.0-3.0); HEMATOCRIT 38.2 % (42.0-52.0); HEMOGLOBIN 12.8 g/dl (13.5-17.5); LYMPH % 13.5 % (24.0-44.0); MEAN CORPUSCULAR HEMOGLOBIN 28.4 pg (27.0-33.0); MEAN CORPUSCULAR HGB CONC 33.5 g/dl (32.0-36.5); MEAN CORPUSCULAR VOLUME 84.7 fl (80.0-96.0); MONO # 0.5 10^3/uL (0.0-0.8); NEUTROPHILS # 5.7 10^3/uL (1.5-8.5); PLATELET COUNT, AUTOMATED 253 10^3/uL (150-450); RED BLOOD COUNT 4.51 10^6/uL (4.30-6.10); WHITE BLOOD COUNT 7.3 10^3/uL (4.0-10.0)
[2023-12-13 12:02] LABS: ALBUMIN 2.8 G/DL (3.2-5.2); ALKALINE PHOSPHATASE 66 U/L (46-116); ALT/SGPT 22 U/L (7.0-40); AST/SGOT 19 U/L (<34); BILIRUBIN,TOTAL 0.5 MG/DL (0.3-1.2); BLOOD UREA NITROGEN 9 MG/DL (9-23); CALCIUM LEVEL 8.7 MG/DL (8.3-10.6); CARBON DIOXIDE LEVEL 29 MMOL/L (20-31); CHLORIDE LEVEL 107 MMOL/L (98-107); CREATININE FOR GFR 0.66 MG/DL (0.70-1.30); GLOMERULAR FILTRATION RATE > 60.0 (>49); GLUCOSE, FASTING 98 MG/DL (74-106); POTASSIUM SERUM 4.3 MMOL/L (3.5-5.1); SODIUM LEVEL 142 MMOL/L (136-145); TOTAL PROTEIN 5.3 G/DL (5.7-8.2)
[2023-12-13 12:05] LABS: VITAMIN B12 LEVEL 739 PG/ML (211-911)
[2023-12-13 12:07] LABS: FOLATE 8.77 NG/ML (>5.4)
== END ==
LOC: SKLAB8 12-12 07:00
PROVIDERS: ATTEND Nurse Practitioner Family
DX: F03.90 Unspecified dementia, unspecified severity, without behavioral disturbance, psychotic disturbance, mood disturbance, and anxiety (principal)

== ENCOUNTER → 2024-01-05 | Outpatient (REF) | payer MEDICARE, OTHER | LOC: SKLAB8 13:22 | PROVIDERS: ATTEND Internal Medicine | DX: R41.82 Altered mental status, unspecified (principal) ==

== ENCOUNTER → 2024-01-05 | Outpatient (REF) | payer MEDICARE, OTHER ==
[2024-01-05 15:16] LABS: BASO % 0.2 % (0.0-1.0); EOS # 0.1 10^3/uL (0.0-0.5); EOS % 1.3 % (0.0-3.0); HEMATOCRIT 35.3 % (42.0-52.0); HEMOGLOBIN 11.8 g/dl (13.5-17.5); LYMPH # 1.1 10^3/uL (1.5-5.0); LYMPH % 20.2 % (24.0-44.0); MEAN CORPUSCULAR HEMOGLOBIN 28.4 pg (27.0-33.0); MEAN CORPUSCULAR HGB CONC 33.4 g/dl (32.0-36.5); MEAN CORPUSCULAR VOLUME 84.9 fl (80.0-96.0); MONO # 0.5 10^3/uL (0.0-0.8); MONO % 9.7 % (2.0-8.0); NEUTROPHILS # 3.7 10^3/uL (1.5-8.5); NEUTROPHILS % 68.4 % (36.0-66.0); PLATELET COUNT, AUTOMATED 195 10^3/uL (150-450); RED BLOOD COUNT 4.16 10^6/uL (4.30-6.10); WHITE BLOOD COUNT 5.4 10^3/uL (4.0-10.0)
[2024-01-05 15:43] LABS: ALBUMIN 2.6 G/DL (3.2-5.2); ALKALINE PHOSPHATASE 57 U/L (46-116); ALT/SGPT 13 U/L (7.0-40); AST/SGOT < 8 U/L (<34); BILIRUBIN,TOTAL 0.5 MG/DL (0.3-1.2); BLOOD UREA NITROGEN 9 MG/DL (9-23); CALCIUM LEVEL 8.1 MG/DL (8.3-10.6); CARBON DIOXIDE LEVEL 29 MMOL/L (20-31); CHLORIDE LEVEL 108 MMOL/L (98-107); CREATININE FOR GFR 0.62 MG/DL (0.70-1.30); GLOMERULAR FILTRATION RATE > 60.0 (>49); GLUCOSE, FASTING 122 MG/DL (74-106); POTASSIUM SERUM 3.4 MMOL/L (3.5-5.1); SODIUM LEVEL 142 MMOL/L (136-145); TOTAL PROTEIN 4.9 G/DL (5.7-8.2)
== END ==
LOC: SKLAB8 13:24
PROVIDERS: ATTEND Internal Medicine
DX: R41.82 Altered mental status, unspecified (principal); R41.89 Other symptoms and signs involving cognitive functions and awareness

== ENCOUNTER → 2024-01-05 | Outpatient (REF) | payer MEDICARE, OTHER | LOC: SKLAB8 13:16 | PROVIDERS: ATTEND Internal Medicine | DX: R41.89 Other symptoms and signs involving cognitive functions and awareness (principal) ==

== ENCOUNTER → 2024-01-20 | Outpatient (REF) | payer MEDICARE, OTHER ==
[2024-01-20 12:14] LABS: HEMATOCRIT 35.7 % (42.0-52.0); HEMOGLOBIN 11.7 g/dl (13.5-17.5); MEAN CORPUSCULAR HEMOGLOBIN 28.5 pg (27.0-33.0); MEAN CORPUSCULAR HGB CONC 32.8 g/dl (32.0-36.5); MEAN CORPUSCULAR VOLUME 86.9 fl (80.0-96.0); PLATELET COUNT, AUTOMATED 153 10^3/uL (150-450); RED BLOOD COUNT 4.11 10^6/uL (4.30-6.10); WHITE BLOOD COUNT 4.3 10^3/uL (4.0-10.0)
[2024-01-20 12:40] LABS: ALBUMIN 2.7 G/DL (3.2-5.2); ALKALINE PHOSPHATASE 59 U/L (46-116); ALT/SGPT 22 U/L (7.0-40); AST/SGOT 13 U/L (<34); BILIRUBIN,TOTAL 0.5 MG/DL (0.3-1.2); BLOOD UREA NITROGEN 9 MG/DL (9-23); CALCIUM LEVEL 8.4 MG/DL (8.3-10.6); CARBON DIOXIDE LEVEL 29 MMOL/L (20-31); CHLORIDE LEVEL 105 MMOL/L (98-107); CREATININE FOR GFR 0.49 MG/DL (0.70-1.30); GLOMERULAR FILTRATION RATE > 60.0 (>49); GLUCOSE, FASTING 117 MG/DL (74-106); POTASSIUM SERUM 3.3 MMOL/L (3.5-5.1); SODIUM LEVEL 139 MMOL/L (136-145); TOTAL PROTEIN 5.2 G/DL (5.7-8.2)
== END ==
LOC: SKLAB8 10:39
PROVIDERS: ATTEND Internal Medicine
DX: U07.1 COVID-19 (principal); Z79.899 Other long term (current) drug therapy

== ENCOUNTER → 2024-01-24 | Outpatient (REF) | payer MEDICARE, OTHER, MEDICAID ==
[2024-01-24 08:57] LABS: BLOOD UREA NITROGEN 16 MG/DL (9-23); CALCIUM LEVEL 8.7 MG/DL (8.3-10.6); CARBON DIOXIDE LEVEL 31 MMOL/L (20-31); CHLORIDE LEVEL 109 MMOL/L (98-107); CREATININE FOR GFR 0.56 MG/DL (0.70-1.30); GLOMERULAR FILTRATION RATE > 60.0 (>49); GLUCOSE, FASTING 84 MG/DL (74-106); MAGNESIUM LEVEL 1.9 MG/DL (1.8-2.4); POTASSIUM SERUM 4.3 MMOL/L (3.5-5.1); SODIUM LEVEL 143 MMOL/L (136-145)
== END ==
LOC: SKLAB8 07:42
PROVIDERS: ATTEND Internal Medicine
DX: E87.6 Hypokalemia (principal)

== ENCOUNTER → 2024-02-14 | Outpatient (REF) | payer MEDICARE, OTHER, MEDICAID ==
[2024-02-14 15:48] LABS: BASO % 0.2 % (0.0-1.0); EOS # 0.1 10^3/uL (0.0-0.5); EOS % 0.9 % (0.0-3.0); HEMATOCRIT 36.6 % (42.0-52.0); HEMOGLOBIN 11.8 g/dl (13.5-17.5); LYMPH % 16.2 % (24.0-44.0); MEAN CORPUSCULAR HEMOGLOBIN 28.6 pg (27.0-33.0); MEAN CORPUSCULAR HGB CONC 32.2 g/dl (32.0-36.5); MEAN CORPUSCULAR VOLUME 88.6 fl (80.0-96.0); MONO # 0.5 10^3/uL (0.0-0.8); MONO % 8.4 % (2.0-8.0); NEUTROPHILS # 4.8 10^3/uL (1.5-8.5); NEUTROPHILS % 74.1 % (36.0-66.0); PLATELET COUNT, AUTOMATED 193 10^3/uL (150-450); RED BLOOD COUNT 4.13 10^6/uL (4.30-6.10); WHITE BLOOD COUNT 6.4 10^3/uL (4.0-10.0)
[2024-02-14 16:18] LABS: ALBUMIN 3.1 G/DL (3.2-5.2); ALKALINE PHOSPHATASE 72 U/L (46-116); ALT/SGPT 41 U/L (7.0-40); AST/SGOT 19 U/L (<34); BILIRUBIN,TOTAL 0.5 MG/DL (0.3-1.2); BLOOD UREA NITROGEN 11 MG/DL (9-23); CALCIUM LEVEL 8.5 MG/DL (8.3-10.6); CARBON DIOXIDE LEVEL 30 MMOL/L (20-31); CHLORIDE LEVEL 107 MMOL/L (98-107); CREATININE FOR GFR 0.69 MG/DL (0.70-1.30); GLOMERULAR FILTRATION RATE > 60.0 (>49); GLUCOSE, FASTING 98 MG/DL (74-106); POTASSIUM SERUM 3.4 MMOL/L (3.5-5.1); SODIUM LEVEL 143 MMOL/L (136-145); TOTAL PROTEIN 5.5 G/DL (5.7-8.2)
== END ==
LOC: SKLAB8 12:34
PROVIDERS: ATTEND Internal Medicine
DX: I95.9 Hypotension, unspecified (principal)

== ENCOUNTER → 2024-07-12 | Outpatient (REF) | payer MEDICARE, OTHER, MEDICAID ==
[~2024-07-12] MED LIST changes: +GABA-1172 PO; -GABA-282 PO
[2024-07-12 13:33] LABS: BASO % 0.2 % (0.0-1.0); EOS # 0.1 10^3/uL (0.0-0.5); EOS % 0.9 % (0.0-3.0); HEMATOCRIT 38.2 % (42.0-52.0); HEMOGLOBIN 12.6 g/dl (13.5-17.5); LYMPH # 0.9 10^3/uL (1.5-5.0); LYMPH % 13.7 % (24.0-44.0); MEAN CORPUSCULAR VOLUME 87.8 fl (80.0-96.0); MONO # 0.5 10^3/uL (0.0-0.8); MONO % 7.2 % (2.0-8.0); NEUTROPHILS # 5.1 10^3/uL (1.5-8.5); NEUTROPHILS % 77.7 % (36.0-66.0); PLATELET COUNT, AUTOMATED 190 10^3/uL (150-450); RED BLOOD COUNT 4.35 10^6/uL (4.30-6.10); WHITE BLOOD COUNT 6.6 10^3/uL (4.0-10.0)
[2024-07-12 14:06] LABS: ALBUMIN 3.6 G/DL (3.2-5.2); ALKALINE PHOSPHATASE 61 U/L (40-129); ALT/SGPT 75 U/L (7.0-40); AST/SGOT 35 U/L (<34); BILIRUBIN,TOTAL 0.7 MG/DL (0.3-1.2); BLOOD UREA NITROGEN 18 MG/DL (9-23); CALCIUM LEVEL 9.6 MG/DL (8.3-10.6); CARBON DIOXIDE LEVEL 28 MMOL/L (20-31); CHLORIDE LEVEL 107 MMOL/L (98-107); CREATININE FOR GFR 0.66 MG/DL (0.70-1.30); GLOMERULAR FILTRATION RATE > 60.0 (>49); GLUCOSE, FASTING 109 MG/DL (74-106); SODIUM LEVEL 143 MMOL/L (136-145); TOTAL PROTEIN 6.3 G/DL (5.7-8.2)
== END ==
LOC: SKLAB4 12:44
PROVIDERS: ATTEND Internal Medicine
DX: R00.1 Bradycardia, unspecified (principal); Z79.899 Other long term (current) drug therapy; R53.83 Other fatigue; I45.19 Other right bundle-branch block

== ENCOUNTER → 2024-10-29 | Outpatient (REF) | payer MEDICARE, OTHER, MEDICAID ==
[2024-10-29 12:10] LABS: BASO % 0.2 % (0.0-1.0); EOS # 0.1 10^3/uL (0.0-0.5); HEMATOCRIT 38.6 % (42.0-52.0); HEMOGLOBIN 12.7 g/dl (13.5-17.5); MEAN CORPUSCULAR HEMOGLOBIN 29.3 pg (27.0-33.0); MEAN CORPUSCULAR HGB CONC 32.9 g/dl (32.0-36.5); MEAN CORPUSCULAR VOLUME 88.9 fl (80.0-96.0); MONO # 0.4 10^3/uL (0.0-0.8); MONO % 7.3 % (2.0-8.0); NEUTROPHILS # 4.5 10^3/uL (1.5-8.5); NEUTROPHILS % 74.2 % (36.0-66.0); PLATELET COUNT, AUTOMATED 177 10^3/uL (150-450); RED BLOOD COUNT 4.34 10^6/uL (4.30-6.10)
[2024-10-29 12:40] LABS: URIC ACID 3.4 MG/DL (3.7-9.2)
[2024-10-29 12:46] LABS: BLOOD UREA NITROGEN 15 MG/DL (9-23); CALCIUM LEVEL 8.5 MG/DL (8.3-10.6); CARBON DIOXIDE LEVEL 28 MMOL/L (20-31); CHLORIDE LEVEL 108 MMOL/L (98-107); CREATININE FOR GFR 0.67 MG/DL (0.70-1.30); GLOMERULAR FILTRATION RATE > 60.0 (>49); GLUCOSE, FASTING 114 MG/DL (74-106); POTASSIUM SERUM 3.8 MMOL/L (3.5-5.1); SODIUM LEVEL 142 MMOL/L (136-145)
== END ==
LOC: SKLAB4 11:28
PROVIDERS: ATTEND Internal Medicine
DX: R53.83 Other fatigue (principal); R22.32 Localized swelling, mass and lump, left upper limb; M25.522 Pain in left elbow; M70.22 Olecranon bursitis, left elbow; M79.89 Other specified soft tissue disorders

== ENCOUNTER → 2024-10-29 | Outpatient (REF) | payer MEDICARE, OTHER, MEDICAID | LOC: SKLAB4 15:07 | PROVIDERS: ATTEND Internal Medicine | DX: R22.32 Localized swelling, mass and lump, left upper limb (principal); M25.522 Pain in left elbow; M70.22 Olecranon bursitis, left elbow; M79.89 Other specified soft tissue disorders ==

== ENCOUNTER 2024-12-09 08:40 | Emergency (ER) | payer MEDICARE, MEDICAID ==
[~2024-12-09] VITALS: Ht 175.3 cm; Wt 66.3 kg
[2024-12-09 09:37] LABS: BASO % 0.2 % (0.0-1.0); EOS # 0.2 10^3/uL (0.0-0.5); EOS % 3.4 % (0.0-3.0); HEMATOCRIT 41.5 % (42.0-52.0); HEMOGLOBIN 13.9 g/dl (13.5-17.5); LYMPH # 1.1 10^3/uL (1.5-5.0); LYMPH % 22.4 % (24.0-44.0); MEAN CORPUSCULAR HEMOGLOBIN 30.1 pg (27.0-33.0); MEAN CORPUSCULAR HGB CONC 33.5 g/dl (32.0-36.5); MEAN CORPUSCULAR VOLUME 89.8 fl (80.0-96.0); MONO # 0.4 10^3/uL (0.0-0.8); MONO % 7.5 % (2.0-8.0); NEUTROPHILS # 3.1 10^3/uL (1.5-8.5); NEUTROPHILS % 66.3 % (36.0-66.0); PLATELET COUNT, AUTOMATED 171 10^3/uL (150-450); RED BLOOD COUNT 4.62 10^6/uL (4.30-6.10); WHITE BLOOD COUNT 4.7 10^3/uL (4.0-10.0)
[2024-12-09 10:09] LABS: ALBUMIN 3.4 G/DL (3.2-5.2); ALKALINE PHOSPHATASE 57 U/L (40-129); ALT/SGPT 48 U/L (7.0-40); AST/SGOT 68 U/L (<34); BLOOD UREA NITROGEN 13 MG/DL (9-23); CALCIUM LEVEL 8.7 MG/DL (8.3-10.6); CARBON DIOXIDE LEVEL 30 MMOL/L (20-31); CHLORIDE LEVEL 107 MMOL/L (98-107); CREATININE FOR GFR 0.66 MG/DL (0.70-1.30); GLOMERULAR FILTRATION RATE > 90.0 (>49); GLUCOSE, FASTING 91 MG/DL (74-106); POTASSIUM SERUM 4.7 MMOL/L (3.5-5.1); SODIUM LEVEL 144 MMOL/L (136-145); TOTAL PROTEIN 6.2 G/DL (5.7-8.2)
[2024-12-09 10:27] VITALS: BP 125/81; TEMP 98.6; O2SAT 97
== END 2024-12-09 10:49 | disposition home or self-care (01) ==
LOC: M ED 08:40 → EDBD 08:40 → M ED 10:49
DX: R53.83 Other fatigue (principal); F03.90 Unspecified dementia, unspecified severity, without behavioral disturbance, psychotic disturbance, mood disturbance, and anxiety; I45.81 Long QT syndrome; F32.A Depression, unspecified; Z79.899 Other long term (current) drug therapy; Z79.1 Long term (current) use of non-steroidal anti-inflammatories (NSAID)

== ENCOUNTER → 2025-04-15 | Outpatient (REF) | payer MEDICARE, MEDICAID ==
[2025-04-15 15:25] LABS: APPEARANCE, URINE CLEAR (CLEAR); BACTERIA, URINE AUTO NEGATIVE (NEGATIVE); BILIRUBIN, URINE AUTO NEGATIVE (NEGATIVE); BLOOD, URINE BLOOD NEGATIVE (NEGATIVE); GLUCOSE, URINE (UA) AUTO NEGATIVE (NEGATIVE); KETONE, URINE AUTO NEGATIVE (NEGATIVE); LEUKOCYTE ESTERASE, URINE AUTO NEGATIVE (NEGATIVE); MUCUS, URINE SMALL (NEGATIVE); NITRITE, URINE AUTO NEGATIVE (NEGATIVE); PROTEIN, URINE AUTO NEGATIVE (NEGATIVE); RBC, URINE AUTO 1 /HPF (0-3); SPECIFIC GRAVITY URINE AUTO 1.027 (1.002-1.035); SQUAMOUS EPITHELIAL CELL UR AU 0 /HPF (0-6); UROBILINOGEN, URINE AUTO 0.2 mg/dL (0.0-2.0); WBC, URINE AUTO 1 /HPF (0-3)
== END ==
LOC: SKLAB4 14:04
PROVIDERS: ATTEND Internal Medicine
DX: R50.9 Fever, unspecified (principal)

== ENCOUNTER → 2025-04-16 | Outpatient (REF) | payer MEDICARE, MEDICAID ==
[2025-04-16 08:31] LABS: PLATELET COUNT, AUTOMATED 172 10^3/uL (150-450)
[2025-04-16 08:59] LABS: CALCIUM LEVEL 9.2 MG/DL (8.3-10.6); CARBON DIOXIDE LEVEL 32 MMOL/L (20-31); CHLORIDE LEVEL 106 MMOL/L (98-107); CREATININE FOR GFR 0.72 MG/DL (0.70-1.30); GLOMERULAR FILTRATION RATE > 90.0 (>49); POTASSIUM SERUM 4.6 MMOL/L (3.5-5.1); SODIUM LEVEL 145 MMOL/L (136-145)
== END ==
LOC: SKLAB4 07:00
PROVIDERS: ATTEND Nurse Practitioner Adult Health
DX: R50.9 Fever, unspecified (principal)

== ENCOUNTER → 2025-07-03 | Outpatient (REF) | payer MEDICARE, MEDICAID ==
[2025-07-03 10:00] LABS: PLATELET COUNT, AUTOMATED 176 10^3/uL (150-450)
[2025-07-03 10:15] LABS: PSA SCREENING 0.21 NG/ML (< 4.00)
[2025-07-03 10:19] LABS: ALT/SGPT 38 U/L (7.0-40); AST/SGOT 31 U/L (<34); CALCIUM LEVEL 9.2 MG/DL (8.3-10.6); CARBON DIOXIDE LEVEL 30 MMOL/L (20-31); CHLORIDE LEVEL 105 MMOL/L (98-107); CHOLESTEROL LEVEL 142 MG/DL (<200); CHOLESTEROL RISK RATIO 2.84 (<5); CREATININE FOR GFR 0.71 MG/DL (0.70-1.30); GLOMERULAR FILTRATION RATE > 90.0 (>49); LDL CHOLESTEROL 77.9 MG/DL (<100); NON-HDL-C 92.1 MG/DL; POTASSIUM SERUM 4.9 MMOL/L (3.5-5.1); SODIUM LEVEL 146 MMOL/L (136-145); TRIGLYCERIDES LEVEL 71 MG/DL (<150)
[2025-07-03 10:57] LABS: ESTIMATED AVERAGE GLUCOSE 94.0 MG/DL (60-110)
== END ==
LOC: SKLAB4 07:00
PROVIDERS: ATTEND Family Medicine
DX: N18.9 Chronic kidney disease, unspecified (principal); D63.1 Anemia in chronic kidney disease; Z12.5 Encounter for screening for malignant neoplasm of prostate; Z79.899 Other long term (current) drug therapy
CPT/HCPCS: 36415; 80053; 80061; 83036; 84443; 85027; G0103

== ENCOUNTER → 2025-07-09 | Outpatient (REF) | payer MEDICARE, MEDICAID ==
[2025-07-09 17:24] LABS: PLATELET COUNT, AUTOMATED 215 10^3/uL (150-450)
[2025-07-09 17:42] LABS: CALCIUM LEVEL 9.1 MG/DL (8.3-10.6); CARBON DIOXIDE LEVEL 32 MMOL/L (20-31); CHLORIDE LEVEL 105 MMOL/L (98-107); CREATININE FOR GFR 0.85 MG/DL (0.70-1.30); GLOMERULAR FILTRATION RATE > 90.0 (>49); POTASSIUM SERUM 4.5 MMOL/L (3.5-5.1); SODIUM LEVEL 146 MMOL/L (136-145)
== END ==
LOC: SKLAB4 10:26
PROVIDERS: ATTEND Family Medicine
DX: R09.89 Other specified symptoms and signs involving the circulatory and respiratory systems (principal)